=== PATIENT | male | born 1995 | race Caucasian/White ===

== ENCOUNTER 2018-06-18 19:11 | Emergency (ER) | payer BC ==
[~2018-06-18] VITALS: Ht 190.5 cm; Wt 86.4 kg
[2018-06-18 19:25] VITALS: TEMP 97.2
[2018-06-18] MEDS ORDERED: PROZAC 10MG10 MG PO (19:33)
[2018-06-18 21:02] VITALS: BP 112/64; PULSE 82
== END 2018-06-18 21:03 | disposition home or self-care (01) ==
LOC: COL.ER 19:11
DX: S93.402A Sprain of unspecified ligament of left ankle, initial encounter (principal); X50.0XXA Overexertion from strenuous movement or load, initial encounter; Y93.67 Activity, basketball
CPT/HCPCS: J2250; J3010; J7040; Q4045